=== PATIENT | female | born 1970 | race African-American/Black ===

== ENCOUNTER 2018-12-01 15:02 | Emergency (ER) | payer OTHER ==
[~2018-12-01] VITALS: Wt 72.7 kg
[2018-12-01 15:03] VITALS: BP 125/79; PULSE 75; RESP 18
[2018-12-01] MEDS ORDERED: KETOROLAC 60 MG INJ IM STA (16:02)
[2018-12-01] MEDS ORDERED: HYDROCODONE/APAP (5/325) TAB PO ONE (16:30)
[2018-12-01] MEDS ORDERED: NAPR-985 PO (18:22)
[2018-12-01] MEDS ORDERED: HYDR-4011 PO (18:22)
--- NOTE | 2018-12-01 18:49 | ERD ---
ER Documentation Chief Complaint Chief Complaint L ARM PAIN AND R WRIST PAIN FROM A FALL ABOUT 1 HR AGO HPI 48-year-old female with no significant past medical history presenting to the emergency department complaining of a fall which occurred just prior to arrival after accidentally stepping into a pothole. She states she fell forward onto bilateral outstretched hands. She reports severe right wrist and left elbow and left knee pain which is constant and worse with movement. She took no medication for relief of symptoms. She denies any head injury or loss of con sciousness or other symptoms or injuries at this time. ROS All systems reviewed and are negative except as per history of present illness. Medications Home Meds Active Scripts Naproxen* (Naprosyn*) 500 Mg Tablet, 500 MG PO BID PRN for PAIN AND/OR INFLAMMATION, #30 TAB Prov:CHERYL BLOOM PA-C 12/01/18 Hydrocodone/Acetaminophen (Marissa 5-325 Tablet) 1 Each Tablet, 1 TAB PO Q6H PRN for PAIN, #7 TAB Prov:CHERYL BLOOM PA-C 12/01/18 Allergies Allergies: Coded Allergies: iodine (Verified Allergy, 09/08/13) PMhx/Soc History of Surgery: Yes (c section) Hx Alcohol Use: No Hx Substance Use: No Hx Tobacco Use: No Smoking Status: Never smoker FmHx Family History: No diabetes Physical Exam Vitals Vital Signs Date Temp Pulse Resp B/P (MAP) Pulse Ox O2 O2 Flow FiO2 Time Delivery Rate 12/01/18 98.5 75 18 125/79 99 15:03 (94) Physical Exam Const: No acute distress Head: Atraumatic Eyes: Normal Conjunctiva ENT: Normal External Ears, Nose and Mouth. Neck: Full range of motion. No meningismus. Resp: No respiratory distress. Skin: No petechiae or rashes Back: No midline or flank tenderness Ext: Swelling with associated tenderness to palpation over the right anterior wrist. Patient is neurovascularly intact distally. There is no obvious deformity or open fracture noted. Range of motion of the right wrist is limited secondary to pain. Patient has tenderness palpation over the medial and lateral epicondyles of the left elbow with associated swelling. She is neurovascularly intact distally in the left upper extremity. There is limited range of motion of the left elbow secondary to pain. Patient has tenderness palpation over the left anterior knee. Limited range of motion secondary to pain. Neur: Awake and alert Psych: Normal Mood and Affect Results 24 hrs Laboratory Tests Test 12/01/18 16:16 POC Beta HCG, Qualitative NEGATIVE Current Medications Medications Dose Sig/Noel Start Time Status Last (Trade) Ordered Route PRN Stop Time Admin Dose Reason Admin 1 tab ONCE ONCE 12/01/18 DC 12/01/18 Acetaminophen PO 16:30 16:22 / 12/01/18 16:31 Hydrocodone Bitart (Marissa (5/325)) Ketorolac 60 mg ONCE STAT 12/01/18 DC 12/01/18 Tromethamine IM 16:02 16:22 (Toradol) 12/01/18 16:04 Procedures/MDM 48-year-old female presenting to the emergency department with complaints of left knee, left elbow, and right wrist pain after a fall which occurred just prior to arrival. There was no head injury or loss of consciousness. The patient had no neurological deficits on examination. X-rays were notable for a triquetrum fracture of the right wrist and fat pad sign on the left elbow concerning for probable occult fracture. Full reports interpreted by the radiologist may be viewed below. The patient required splint of the right wrist and the left elbow for immobilization of fractures.Splint Assessment of the right wrist: Neurovascularly intact post splint placement with good fit. Splint assessment of the left elbow: Neurovascularly intact post splint placement with good fit Patient was advised she must follow-up with orthopedic physician within the next 24 to 48 hours for repeat examination and further treatment if required. She was in agreement with the diagnosis, plan, need for follow-up, return precautions. Patient's extremity symptoms have stabilized while they have been evaluated in the department and are appropriate for outpatient follow up. No evidence of compartment syndrome, neurologic injury, vascular injury, open joint, open fracture, tendon laceration, or foreign body. [place] [address] Radiology Main Line: [phone] DIAGNOSTIC IMAGING REPORT Patient: ABEBE MORALEZ : 1970 Age: 48 Sex: F MR #: [id number] DOS: 12/01/18 0000 Ordering MD: CHERYL BLOOM PA-C Location: [facility] Room/Bed: PROCEDURE: XR Left Elbow. CLINICAL INDICATION: Trauma TECHNIQUE: AP, lateral and oblique views of the left elbow performed. COMPARISON: None. FINDINGS: There is suboptimal positioning of the elbow limiting the sensitivity of the study. Noted is displacement of the anterior and posterior fat pads suggestive of hemarthrosis. The joint spaces are grossly intact with anatomic alignment and no fracture is identified. IMPRESSION: No gross fracture or dislocation on suboptimal left elbow radiographs. Displacement fat pads compatible with hemarthrosis. Findings are suspicious for occult fracture. Consider repeat with improved positioning or CT for more definitive diagnosis. .Josemanuel Ku MD, Date Time Electronically viewed and signed by .Joesmanuel Ku MD, on 12/01/2018 17:21 .A/ CC: CHERYL BLOOM PA-C [id number] [place] [address] Radiology Main Line: [phone] DIAGNOSTIC IMAGING REPORT Patient: ABEBE MORALEZ : 1970 Age: 48 Sex: F MR #: [id number] DOS: 12/01/18 0000 Ordering MD: CHERYL BLOOM PA-C Location: [facility] Room/Bed: PROCEDURE: Left knee x-ray CLINICAL INDICATION: Trauma TECHNIQUE: AP, lateral and tunnel views of the left knee were obtained. COMPARISON: None FINDINGS: There is normal mineralization. No acute fracture or dislocation is seen. There are no significant degenerative changes. There is no joint effusion. There is no significant soft tissue swelling. IMPRESSION: Normal x-ray of the left knee. .Josemanuel Ku MD, Date Time Electronically viewed and signed by .Josemanuel Ku MD, on 12/01/2018 17:23 .A/ CC: CHERYL BLOOM PA-C [id number] [place] [address] Radiology Main Line: [phone] DIAGNOSTIC IMAGING REPORT Patient: ABEBE MORALEZ : 1970 Age: 48 Sex: F MR #: [id number] DOS: 12/01/18 0000 Ordering MD: CHERYL BLOOM PA-C Location: [facility] Room/Bed: PROCEDURE: XR left shoulder. CLINICAL INDICATION: Trauma TECHNIQUE: AP, Internal and external rotation views and transscapular Y-view of the left shoulder were performed. COMPARISON: None. FINDINGS: There is normal osseous mineralization and alignment. No acute fracture or osseous lesion is identified. There are normal joints without evidence of arthritis or dislocation. The soft tissues are unremarkable. IMPRESSION: Unremarkable left shoulder. < .Josemanuel Ku MD, MD Date Time Electronically viewed and signed by .Josemanuel Ku MD, MD on 12/01/2018 17:19 .A/ CC: CHERYL BLOOM PA-C [id number] [place] [address] Radiology Main Line: [phone] DIAGNOSTIC IMAGING REPORT Patient: ABEBE MORALEZ : 1970 Age: 48 Sex: F MR #: [id number] DOS: 12/01/18 0000 Ordering MD: CHERYL BLOOM PA-C Location: [facility] Room/Bed: PROCEDURE: XR Left Wrist. CLINICAL INDICATION: Trauma TECHNIQUE: AP, lateral and oblique views of the left wrist were performed. COMPARISON: No prior studies are available for comparison. FINDINGS: There is no evidence of acute fracture. No evidence of dislocation or subluxation. The bones appear well mineralized. The joint spaces are well preserved. The soft tissues are normal. IMPRESSION: Unremarkable exam of the left wrist. .Josemanuel Ku MD, MD Date Time Electronically viewed and signed by .Josemanuel Ku MD, MD on 12/01/2018 17:20 .A/ CC: CHERYL BLOOM PA-C [id number] [place] [address] Radiology Main Line: [phone] DIAGNOSTIC IMAGING REPORT Patient: ABEBE MORALEZ : 1970 Age: 48 Sex: F MR #: [id number] DOS: 12/01/18 0000 Ordering MD: CHERYL BLOOM PA-C Location: [facility] Room/Bed: PROCEDURE: Right wrist x-ray CLINICAL INDICATION: Trauma TECHNIQUE: AP, lateral and oblique views of the wrist were obtained. COMPARISON: None FINDINGS: There is soft tissue swelling on the dorsum of the wrist. The joint spaces are intact with anatomic alignment. Noted is a cyst within the distal portion of the scaphoid bone. There is a chip fracture on the dorsum of the triquetrum. No other fractures seen. IMPRESSION: Chip fracture dorsum right triquetrum with soft tissue swelling. .Josemanuel Ku MD, MD Date Time Electronically viewed and signed by .Josemanuel Ku MD, MD on 12/01/2018 17:22 .A/ CC: CHERYL BLOOM PA-C [id number] Departure Diagnosis: Primary Impression: Left elbow fracture Additional Impression: Fracture of triquetrum of right wrist Condition: Fair Patient Instructions: Elbow Fracture, Fracture, Wrist [General] Referrals: COMM[facility]ITY CLINICS YOU HAVE RECEIVED A MEDICAL SCREENING EXAM AND THE RESULTS INDICATE THAT YOU DO NOT HAVE A CONDITION THAT REQUIRES URGENT TREATMENT IN THE EMERGENCY DEPARTMENT. FURTHER EVALUATION AND TREATMENT OF YOUR CONDITION CAN WAIT UNTIL YOU ARE SEEN IN YOUR DOCTORS OFFICE WITHIN THE NEXT 1-2 DAYS. IT IS YOUR RESPONSIBILITY TO MAKE AN APPOINTMENT FOR FOLOW-UP CARE. IF YOU HAVE A PRIMARY DOCTOR --you should call your primary doctor and schedule an appointment IF YOU DO NOT HAVE A PRIMARY DOCTOR YOU CAN CALL OUR PHYSICIAN REFERRAL HOTLINE AT IF YOU CAN NOT AFFORD TO SEE A PHYSICIAN YOU CAN CHOSE FROM THE FOLLOWING [facility] CLINICS [facility] [address] [facility]. [facility] [address] [facility] [facility] [address] [facility] [facility] [address] [facility] [facility] [address] [facility] [facility] [address] [facility]. [facility] Urgent Care 7 a.m.- 11 p.m. Every Day of the Week NO APPOINTMENT OR AUTHORIZATION NEEDED [facility] Hours: Mon-Fri 9:00 AM - 5:00 PM Additional Instructions: SPECIALIST: YOU HAVE A MEDICAL CONDITION WHICH REQUIRES YOU TO SEE A SPECIALIST WITHIN THE NEXT 1-2 DAYS. PLEASE FOLLOW UP WITH YOUR PRIMARY PHYSICIAN FOR REFFERAL.IF YOU DO NOT HAVE A PRIMARY CARE PHYSICIAN AND/OR YOU CAN NOT AFFORD TO SEE A PHYSICIAN THE FOLLOWING RESOURCES HAVE BEEN SUPPLIED TO YOU. IT IS YOUR RESPONSIBILITY TO BE SEEN BY THE SPECIALIST: ORTHOPEDIC PHYSICIAN CHERYL BLOOM PA-C December 01, 2018 18:49
== END 2018-12-01 19:55 | disposition home or self-care (01) ==
LOC: FTE 15:02
DX: S42.402A Unspecified fracture of lower end of left humerus, initial encounter for closed fracture (principal); S62.111A Displaced fracture of triquetrum [cuneiform] bone, right wrist, initial encounter for closed fracture; W18.42XA Slipping, tripping and stumbling without falling due to stepping into hole or opening, initial encounter; Y92.9 Unspecified place or not applicable
CPT/HCPCS: 29105; 29125; 73030; 73080; 73110; 73562; 81025; 96372; J1885; Z7502; Z7610